=== PATIENT | male | born 1950 | race Caucasian/White ===

== ENCOUNTER 2018-05-26 23:42 | Emergency (ER) | payer MEDICARE, OTHER ==
[~2018-05-26 23:42] MED LIST: CLARITIN 1010 MG/TAB PO; COZAAR 50MG50 MG/TAB PO; CRESTOR20 MG PO; DESYREL 50MG50 MG PO; GLUCOPHAGE500 MG/TAB PO; INDERAL80 MG PO; MAG-OX 400400 MG/TAB PO; MOBIC15 MG PO; MULTI VITAMINS1 TAB PO; NAFTIN1% TP; NASONEX SPRAY17 GM NS; OMEGA-3 FISH1000 MG PO; PROBIOTIC ACID1 EAC3 PO; PROTONIX20 MG PO; ZESTRIL 5MG5 MG PO
[2018-05-27 00:33] LABS: BASO # 0.1 (0.0-0.2); EOS # 0.4 (0.0-0.7); EOS % 4.4 % (0-4.0); GRAN % 35.9 % (42.2-75.2); HEMATOCRIT 37.3 % (42.0-52.0); HEMOGLOBIN 13.4 g/dl (13.5-18.0); LYMPH % 47.7 % (20.0-51.0); MEAN CELL VOLUME 92 fl (80.0-100.0); MEAN CORPUSCULAR HEMOGLOBIN 33 pg (27.0-31.0); MEAN CORPUSCULAR HGB CONC 36 g/dl (33.0-37.0); MEAN PLATELET VOLUME 8.9 fl (7.4-10.4); MONO # 0.9 (0.1-0.6); MONO % 10.8 % (1.7-9.3); PLATELET COUNT 254 K/mm3 (130-400); RED BLOOD COUNT 4.04 M/mm3 (4.20-5.60)
[2018-05-27 00:42] LABS: INR 0.9 (0.8-3.0); PROTHROMBIN TIME 10.5 SECONDS (9.7-12.8)
[2018-05-27 00:45] LABS: PARTIAL THROMBOPLASTIN TIME 30.7 SECONDS (26.0-37.0)
[2018-05-27] MEDS ORDERED: NORCO 325 MG-51 TAB PO (01:42)
[2018-05-27] MEDS ORDERED: CEPHALEXIN500 M1 PO (01:42)
[2018-05-27] MEDS ORDERED: CATAPRES 0.1MG0.1 MG PO (02:00)
[2018-05-27 02:15] VITALS: BP 120/86; PULSE 74
== END 2018-05-27 02:15 | disposition home or self-care (01) ==
LOC: COL.ER 23:42
PROVIDERS: Emergency Medicine
DX: R04.0 Epistaxis (principal); I10 Essential (primary) hypertension; E11.9 Type 2 diabetes mellitus without complications; Z79.82 Long term (current) use of aspirin; Z79.84 Long term (current) use of oral hypoglycemic drugs
CPT/HCPCS: J2405

== ENCOUNTER 2018-08-06 14:01 | Emergency (ER) | payer MEDICARE, OTHER ==
[~2018-08-06] VITALS: Ht 175.3 cm; Wt 77.3 kg
[~2018-08-06 14:01] MED LIST changes: +CATAPRES 0.1MG0.1 MG PO; +CEPHALEXIN500 M1 PO; +NORCO 325 MG-51 TAB PO
[2018-08-06 14:36] LABS: BASO # 0.1 (0.0-0.2); BASO % 0.6 % (0.0-2.0); EOS # 0.3 (0.0-0.7); EOS % 2.7 % (0-4.0); GRAN # 6.7 (1.4-6.5); GRAN % 61.1 % (42.2-75.2); HEMATOCRIT 44.8 % (42.0-52.0); HEMOGLOBIN 15.4 g/dl (13.5-18.0); LYMPH # 3.3 (1.2-3.4); LYMPH % 30.7 % (20.0-51.0); MEAN CELL VOLUME 95 fl (80.0-100.0); MEAN CORPUSCULAR HEMOGLOBIN 33 pg (27.0-31.0); MEAN CORPUSCULAR HGB CONC 34 g/dl (33.0-37.0); MEAN PLATELET VOLUME 9.5 fl (7.4-10.4); MONO # 0.5 (0.1-0.6); MONO % 4.6 % (1.7-9.3); PLATELET COUNT 225 K/mm3 (130-400); REDCELL DISTRIBUTION WIDTH-CV 11.8 % (11.5-14.5)
[2018-08-06] MEDS ORDERED: GLUCOPHAGE500 MG/TAB PO (14:37)
[2018-08-06] MEDS ORDERED: PRINIVIL10 MG PO (14:38)
[2018-08-06] MEDS ORDERED: PROTONIX 40MG T40 MG PO (14:38)
[2018-08-06] MEDS ORDERED: INDERAL LA 80MG80 MG PO (14:39)
[2018-08-06] MEDS ORDERED: MAG-OX 400400 MG/TAB PO (14:40)
[2018-08-06] MEDS ORDERED: FISH OIL 1000MG1 CAP PO (14:40)
[2018-08-06] MEDS ORDERED: PROBIOTIC FORMU1 CAP PO (14:41)
[2018-08-06] MEDS ORDERED: MULTIPLE VITAMI1 CAP PO (14:41)
[2018-08-06] MEDS ORDERED: CLARITIN 1010 MG/TAB PO (14:42)
[2018-08-06] MEDS ORDERED: ASPIRIN E.C. 8181 MG PO (14:42)
[2018-08-06] MEDS ORDERED: FLONASEALLERGY NS (14:43)
[2018-08-06] MEDS ORDERED: CRESTOR20 MG PO (14:43)
[2018-08-06] MEDS ORDERED: DESYREL 50MG50 MG PO (14:44)
[2018-08-06] MEDS ORDERED: ULTRAM 50MG TAB50 MG PO (14:44)
[2018-08-06 14:49] LABS: ALANINE AMINOTRANSFERASE 70 U/L (21-72); ALBUMIN 4.4 gm/dL (3.5-5.0); ALKALINE PHOSPHATASE 43 U/L (50-136); ANION GAP 13 mmol/L (7-16); AST,SGOT 68 U/L (15-37); BILIRUBIN,TOTAL 0.7 mg/dL (0.0-1.0); BLOOD UREA NITROGEN 14 mg/dL (9-20); CALCIUM 9.3 mg/dL (8.4-10.2); CARBON DIOXIDE 22 mmol/L (22-30); CHLORIDE 107 mmol/L (98-107); CREATININE, serum 1.03 mg/dL (0.66-1.25); GLUCOSE 59 mg/dL (74-106); POTASSIUM 5.7 mmol/L (3.4-5.0); SODIUM 142 mmol/L (137-145); TOTAL PROTEIN 7.7 gm/dL (6.4-8.2)
[2018-08-06 14:51] LABS: C-REACTIVE PROTEIN < 0.5 mg/dL (0.0-0.9)
[2018-08-06 14:57] LABS: TROPONIN-I < 0.012 ng/mL (0.000-0.034)
[2018-08-06 15:03] LABS: COLLECTION METHOD CLEAN CATCH
[2018-08-06 15:11] LABS: MUCOUS Present /lpf; PH 5 (5-8); SQUAMOUS EPITHELIAL 0-2 /hpf; URINE APPEARANCE Hazy; URINE BACTERIA None Seen /hpf; URINE BILIRUBIN Negative (NEGATIVE); URINE BLOOD Negative (NEGATIVE); URINE COLOR Yellow; URINE GLUCOSE Negative (NEGATIVE); URINE KETONE Trace (NEGATIVE); URINE LEUKOCYTE ESTERASE Negative (NEGATIVE); URINE NITRATE Negative (NEGATIVE); URINE PROTEIN(semi-quant) 2+ (NEGATIVE); URINE RBC 0-2 /hpf; URINE UROBILINOGEN Negative (NEGATIVE)
[2018-08-06 15:16] LABS: THYROID STIMULATING HORMONE 0.572 uIU/mL (0.465-4.680)
[2018-08-06 17:35] VITALS: TEMP 96.8
[2018-08-06 18:30] VITALS: BP 152/79; PULSE 76
== END 2018-08-06 18:30 | disposition short-term general hospital (02) ==
LOC: COL.ER 14:01
PROVIDERS: Family Medicine
DX: A41.9 Sepsis, unspecified organism (principal); E16.2 Hypoglycemia, unspecified; E87.5 Hyperkalemia; T68.XXXA Hypothermia, initial encounter; Z79.82 Long term (current) use of aspirin; Z79.84 Long term (current) use of oral hypoglycemic drugs
CPT/HCPCS: J0696; J1815; J7030; Q9967

== ENCOUNTER 2019-04-22 09:31 | Emergency (ER) | payer MEDICARE, OTHER ==
[~2019-04-22] VITALS: Ht 175.3 cm; Wt 77.3 kg
[~2019-04-22 09:31] MED LIST changes: +ASPIRIN E.C. 8181 MG PO; +FISH OIL 1000MG1 CAP PO; +FLONASEALLERGY NS; +INDERAL LA 80MG80 MG PO; +MULTIPLE VITAMI1 CAP PO; +PRINIVIL10 MG PO; +PROBIOTIC FORMU1 CAP PO; +PROTONIX 40MG T40 MG PO; +ULTRAM 50MG TAB50 MG PO
[2019-04-22 10:14] LABS: BASO % 0.5 % (0.0-2.0); EOS # 0.1 (0.0-0.7); EOS % 2.1 % (0-4.0); HEMATOCRIT 42.5 % (42.0-52.0); HEMOGLOBIN 14.4 g/dl (13.5-18.0); LYMPH # 1.6 (1.2-3.4); LYMPH % 26.2 % (20.0-51.0); MEAN CELL VOLUME 95 fl (80.0-100.0); MEAN CORPUSCULAR HEMOGLOBIN 32 pg (27.0-31.0); MEAN CORPUSCULAR HGB CONC 34 g/dl (33.0-37.0); MONO # 0.4 (0.1-0.6); MONO % 5.9 % (1.7-9.3); PLATELET COUNT 155 K/mm3 (130-400); RED BLOOD COUNT 4.49 M/mm3 (4.20-5.60); REDCELL DISTRIBUTION WIDTH-CV 13.1 % (11.5-14.5)
[2019-04-22 10:24] LABS: ALANINE AMINOTRANSFERASE 34 U/L (21-72); ALBUMIN 4.5 gm/dL (3.5-5.0); ALKALINE PHOSPHATASE 50 U/L (50-136); ANION GAP 16 mmol/L (7-16); AST,SGOT 51 U/L (15-37); BILIRUBIN,TOTAL 0.9 mg/dL (0.0-1.0); BLOOD UREA NITROGEN 20 mg/dL (9-20); CALCIUM 9.8 mg/dL (8.4-10.2); CARBON DIOXIDE 22 mmol/L (22-30); CHLORIDE 102 mmol/L (98-107); GLUCOSE 126 mg/dL (74-106); POTASSIUM 5.6 mmol/L (3.4-5.0); SODIUM 140 mmol/L (137-145); TOTAL PROTEIN 8.1 gm/dL (6.4-8.2)
[2019-04-22 10:36] LABS: TROPONIN-I < 0.012 ng/mL (0.000-0.035)
[2019-04-22 11:27] LABS: COLLECTION METHOD CLEAN CATCH
[2019-04-22 11:38] LABS: PH 5 (5-8); SQUAMOUS EPITHELIAL 0-2 /hpf; URINE APPEARANCE Clear; URINE BACTERIA None Seen /hpf; URINE BILIRUBIN Negative (NEGATIVE); URINE BLOOD Negative (NEGATIVE); URINE COLOR Yellow; URINE GLUCOSE 1+ (NEGATIVE); URINE KETONE 1+ (NEGATIVE); URINE LEUKOCYTE ESTERASE Negative (NEGATIVE); URINE NITRATE Negative (NEGATIVE); URINE PROTEIN(semi-quant) 1+ (NEGATIVE); URINE RBC 0-2 /hpf; URINE UROBILINOGEN Negative (NEGATIVE)
[2019-04-22 13:35] VITALS: BP 140/72; PULSE 68; TEMP 97.4
== END 2019-04-22 13:35 | disposition home or self-care (01) ==
LOC: COL.ER 09:31
PROVIDERS: Emergency Medicine
DX: E11.649 Type 2 diabetes mellitus with hypoglycemia without coma (principal); F10.10 Alcohol abuse, uncomplicated; Z79.84 Long term (current) use of oral hypoglycemic drugs; Z79.82 Long term (current) use of aspirin
CPT/HCPCS: J3411; J3475; J7030

== ENCOUNTER 2019-09-08 14:49 | Observation (INO) | payer MEDICARE, OTHER ==
[~2019-09-08] VITALS: Ht 177.8 cm; Wt 77.7 kg
[2019-09-08 15:15] LABS: BASO # 0.1 (0.0-0.2); BASO % 0.8 % (0.0-2.0); EOS # 0.3 (0.0-0.7); EOS % 3.5 % (0-4.0); GRAN # 4.4 (1.4-6.5); GRAN % 59.4 % (42.2-75.2); HEMATOCRIT 43.2 % (42.0-52.0); HEMOGLOBIN 14.6 g/dl (13.5-18.0); LYMPH # 1.9 (1.2-3.4); LYMPH % 25.4 % (20.0-51.0); MEAN CELL VOLUME 96 fl (80.0-100.0); MEAN CORPUSCULAR HEMOGLOBIN 33 pg (27.0-31.0); MEAN CORPUSCULAR HGB CONC 34 g/dl (33.0-37.0); MEAN PLATELET VOLUME 9.7 fl (7.4-10.4); MONO # 0.8 (0.1-0.6); MONO % 10.6 % (1.7-9.3); PLATELET COUNT 204 K/mm3 (130-400); RED BLOOD COUNT 4.49 M/mm3 (4.20-5.60); REDCELL DISTRIBUTION WIDTH-CV 12.3 % (11.5-14.5)
[2019-09-08 15:24] LABS: ALANINE AMINOTRANSFERASE 92 U/L (21-72); ALBUMIN 4.7 gm/dL (3.5-5.0); ALKALINE PHOSPHATASE 57 U/L (50-136); ANION GAP 11 mmol/L (7-16); AST,SGOT 137 U/L (15-37); BILIRUBIN,TOTAL 0.9 mg/dL (0.0-1.0); BLOOD UREA NITROGEN 20 mg/dL (9-20); CALCIUM 9.4 mg/dL (8.4-10.2); CARBON DIOXIDE 26 mmol/L (22-30); CHLORIDE 103 mmol/L (98-107); CREATININE, serum 1.29 (0.66-1.25); GLUCOSE 173 mg/dL (74-106); POTASSIUM 5.3 mmol/L (3.4-5.0); SODIUM 139 mmol/L (137-145); TOTAL PROTEIN 8.3 gm/dL (6.4-8.2)
[2019-09-08] MEDS ORDERED: BENADRYL50 MG PO (15:30)
[2019-09-08] MEDS ORDERED: MELATONIN5 M1 SL (15:31)
[2019-09-08 15:38] LABS: TROPONIN-I < 0.012 ng/mL (0.000-0.035)
--- NOTE | 2019-09-08 17:15 | NUR ---
Patient arrives to ICU 8 via ED cart and is attached to monitor. Vitals and assessment as charted. Noted swelling to right side of tongue, but airway patent and tracheal auscultation benign. Care assumed at this time.
[2019-09-08 17:36] VITALS: BP 157/80; PULSE 67; TEMP 98.2
[2019-09-08] MEDS ORDERED: ZANAFLEX 4MG TAB4 MG PO (17:53)
[2019-09-08 20:00] VITALS: BP 133/81; PULSE 56; TEMP 98.4
--- NOTE | 2019-09-08 20:00 | NUR ---
Patient assessed, vitals stable. Patient was curious as to what his blood sugar was since we have not had orders to routinely check it here, I stated that I can get a glucometer and check it for him if he would like. Patient asked for snack since he had not had much to eat today and the last time he had something with sugar in it was this AM, snack provided to patient now. Patient brushed teeth in bed, glass of water at bedside along with call light. Will continue to monitor.
[2019-09-09] VITALS: BP 106/66; PULSE 74; TEMP 97.9
[2019-09-09 04:00] VITALS: BP 129/70; PULSE 59; TEMP 97.8
[2019-09-09 06:09] LABS: BASO % 0.3 % (0.0-2.0); GRAN # 2.5 (1.4-6.5); GRAN % 74.4 % (42.2-75.2); HEMATOCRIT 40.5 % (42.0-52.0); LYMPH # 0.7 (1.2-3.4); MEAN CELL VOLUME 94 fl (80.0-100.0); MEAN CORPUSCULAR HEMOGLOBIN 32 pg (27.0-31.0); MEAN CORPUSCULAR HGB CONC 35 g/dl (33.0-37.0); MEAN PLATELET VOLUME 9.6 fl (7.4-10.4); MONO # 0.2 (0.1-0.6); MONO % 4.7 % (1.7-9.3); PLATELET COUNT 122 K/mm3 (130-400); RED BLOOD COUNT 4.32 M/mm3 (4.20-5.60)
[2019-09-09 06:22] LABS: ALANINE AMINOTRANSFERASE 74 U/L (21-72); ALBUMIN 4.4 gm/dL (3.5-5.0); ALKALINE PHOSPHATASE 47 U/L (50-136); ANION GAP 11 mmol/L (7-16); AST,SGOT 97 U/L (15-37); BILIRUBIN,TOTAL 0.7 mg/dL (0.0-1.0); BLOOD UREA NITROGEN 20 mg/dL (9-20); CARBON DIOXIDE 22 mmol/L (22-30); CHLORIDE 106 mmol/L (98-107); CREATININE, serum 1.15 (0.66-1.25); GLUCOSE 190 mg/dL (74-106); SODIUM 139 mmol/L (137-145); TOTAL PROTEIN 7.9 gm/dL (6.4-8.2)
[2019-09-09 06:37] LABS: TROPONIN-I < 0.012 ng/mL (0.000-0.035)
[2019-09-09 09:00] VITALS: BP 136/82; PULSE 57; TEMP 97.8
--- NOTE | 2019-09-09 09:02 | NUR ---
Dr. Sepulveda rounds on patient at this time. Orders as entered CPOE.
--- NOTE | 2019-09-09 09:07 | NUR ---
ECHO completed by tech at this time.
--- NOTE | 2019-09-09 10:39 | NUR ---
Dr. Delaney rounds on patient at this time. Orders entered CPOE.
[2019-09-09] MEDS ORDERED: LIPITOR 40MG TA40 MG PO (11:21)
[2019-09-09] MEDS ORDERED: PREDNISONE20 MG PO (11:22)
[2019-09-09] MEDS ORDERED: PEPCID 20MG TAB20 MG PO (11:23)
--- NOTE | 2019-09-09 11:30 | NUR ---
Discharge education provided to patient and with understanding verbalized. INT IV discontinued at this time.
--- NOTE | 2019-09-09 11:36 | NUR ---
Patient discharged to POC via ambulatory at this time. Care completed.
== END 2019-09-09 11:36 | disposition home or self-care (01) ==
LOC: COL.ER 14:49 → ICU 16:05
PROVIDERS: Emergency Medicine; ADMIT Student in an Organized Health Care Education/Training Program
DX: T78.3XXA Angioneurotic edema, initial encounter (principal); I25.2 Old myocardial infarction; I10 Essential (primary) hypertension; E78.5 Hyperlipidemia, unspecified; E11.9 Type 2 diabetes mellitus without complications; I34.0 Nonrheumatic mitral (valve) insufficiency; Z86.73 Personal history of transient ischemic attack (TIA), and cerebral infarction without residual deficits; K21.9 Gastro-esophageal reflux disease without esophagitis; Z79.82 Long term (current) use of aspirin; Z79.51 Long term (current) use of inhaled steroids; Z98.52 Vasectomy status; Z88.8 Allergy status to other drugs, medicaments and biological substances
CPT/HCPCS: G0378; J1200; J1650; J2920; J2930

== ENCOUNTER 2019-12-27 21:24 | Emergency (ER) | payer MEDICARE, OTHER ==
[~2019-12-27] VITALS: Ht 175.3 cm; Wt 77.3 kg
[~2019-12-27 21:24] MED LIST changes: +BENADRYL50 MG PO; +LIPITOR 40MG TA40 MG PO; +MELATONIN5 M1 SL; +PEPCID 20MG TAB20 MG PO; +PREDNISONE20 MG PO; +ZANAFLEX 4MG TAB4 MG PO
[2019-12-27 21:29] VITALS: TEMP 97.8
[2019-12-27] MEDS ORDERED: RIOMET500 MG/5 M PO (22:43)
[2019-12-27] MEDS ORDERED: NORVASC2.5 MG PO (22:44)
[2019-12-27 22:53] LABS: BASO # 0.1 (0.0-0.2); BASO % 0.8 % (0.0-2.0); EOS # 0.3 (0.0-0.7); EOS % 3.5 % (0-4.0); GRAN # 4.3 (1.4-6.5); GRAN % 61.1 % (42.2-75.2); HEMATOCRIT 42.1 % (42.0-52.0); HEMOGLOBIN 14.2 g/dl (13.5-18.0); LYMPH # 1.8 (1.2-3.4); LYMPH % 25.4 % (20.0-51.0); MEAN CELL VOLUME 96 fl (80.0-100.0); MEAN CORPUSCULAR HEMOGLOBIN 32 pg (27.0-31.0); MEAN CORPUSCULAR HGB CONC 34 g/dl (33.0-37.0); MEAN PLATELET VOLUME 11.2 fl (7.4-10.4); MONO # 0.6 (0.1-0.6); MONO % 8.9 % (1.7-9.3); PLATELET COUNT 170 K/mm3 (130-400); REDCELL DISTRIBUTION WIDTH-CV 11.9 % (11.5-14.5)
[2019-12-27 22:55] LABS: ALBUMIN 4.8 gm/dL (3.5-5.0); BILIRUBIN,TOTAL 0.6 mg/dL (0.0-1.0); CALCIUM 9.3 mg/dL (8.4-10.2); CREATININE, serum 0.95 (0.66-1.25); POTASSIUM 4.6 mmol/L (3.4-5.0); TOTAL PROTEIN 8.1 gm/dL (6.4-8.2)
[2019-12-27 23:02] LABS: PROTHROMBIN TIME 11.1 SECONDS (9.7-12.8)
[2019-12-27 23:05] VITALS: BP 130/89; PULSE 71
== END 2019-12-27 23:05 | disposition home or self-care (01) ==
LOC: COL.ER 21:24
PROVIDERS: Family Medicine
DX: R04.0 Epistaxis (principal); I10 Essential (primary) hypertension; Z79.82 Long term (current) use of aspirin; Z79.51 Long term (current) use of inhaled steroids

== ENCOUNTER → 2020-08-14 | Outpatient (CLI) | payer MEDICARE, OTHER ==
[~2020-08-14] MED LIST changes: +NORVASC2.5 MG PO; +RIOMET500 MG/5 M PO
== END ==
LOC: COL.RAD 12:40
DX: M47.817 Spondylosis without myelopathy or radiculopathy, lumbosacral region (principal); M47.816 Spondylosis without myelopathy or radiculopathy, lumbar region; M51.36 Other intervertebral disc degeneration, lumbar region

== ENCOUNTER 2020-10-27 10:19 | Day surgery (SDC) | payer MEDICARE, OTHER ==
[~2020-10-27] VITALS: Ht 175.3 cm; Wt 77.7 kg
[2020-10-27 10:57] VITALS: BP 157/79; PULSE 63; TEMP 98.2
[2020-10-27] MEDS ORDERED: NORVASC 5MG5 MG/TAB PO (11:04)
[2020-10-27] MEDS ORDERED: GLUCOPHAGE500 MG/TAB PO (11:05)
[2020-10-27] MEDS ORDERED: PROBIOTIC BLEN1 EACH PO (11:06)
[2020-10-27] MEDS ORDERED: ONE-A-DAY ESSE1 EACH PO (11:07)
[2020-10-27] MEDS ORDERED: LIPITOR 40MG TA40 MG PO (11:08)
[2020-10-27] MEDS ORDERED: NAFTIN1% TP (11:11)
[2020-10-27] MEDS ORDERED: ZANAFLEX CAPSULE4 MG PO (11:12)
[2020-10-27] MEDS ORDERED: MELATIN 3 MG-11 TAB PO (11:13)
--- NOTE | 2020-10-27 11:17 | NUR ---
TO RM AT 1027- CALL LIGHT IN REACH
[2020-10-27] MEDS ORDERED: NORCO 325 MG-51 TAB PO (14:33)
[2020-10-27 15:10] VITALS: BP 135/70; PULSE 50; TEMP 99.1
--- NOTE | 2020-10-27 15:10 | NUR ---
TO RM 8 PER OWN WILL STEADY GAIT. ALERT ORIENTED X 3, TALKING TO STAFF. C/0 PAIN 2-10. DENIES NAUSEA. INCISIONS CLEAN DRY INTACT.
[2020-10-27 15:25] VITALS: BP 139/78; PULSE 54
--- NOTE | 2020-10-27 15:25 | NUR ---
RECEIVED WATER AND TAKING SIPS.
[2020-10-27 15:40] VITALS: BP 135/77; PULSE 56
--- NOTE | 2020-10-27 15:40 | NUR ---
SAT UP A LITTLE HIGHER. RECEIVED URSZULAO.
[2020-10-27 16:00] VITALS: BP 131/84; PULSE 58
--- NOTE | 2020-10-27 16:05 | NUR ---
ATE 100% JELLO AND TOLERATED WELL. RECEIVED NORCO 1 TAB PER REQUEST WITH PAIN 4/10. RECEIVED CRACKERS.
[2020-10-27 16:20] VITALS: BP 125/70; PULSE 65
--- NOTE | 2020-10-27 16:20 | NUR ---
ATE 100% AND TOLERATED WELL. AMBULATED TO BATHROOM WITH STAND BY ASSIST. VOIDED AND AMBULATED BACK TO . PATIENT STATED HE WAS READY TO GO HOME.
--- NOTE | 2020-10-27 16:45 | NUR ---
RECEIVED DISCHARGE INSTRUCTIONS AND VERBALIZED UNDERSTANDING. DISCONTINUED IV AND INT- CATHETER INTACT.
--- NOTE | 2020-10-27 17:00 | NUR ---
DISCHARGED PER WC BY NURSING STAFF TO PRIVATE CAR IN CARE OF [facility].
== END 2020-10-27 17:15 | disposition home or self-care (01) ==
LOC: SDCO 10:19
DX: K40.21 Bilateral inguinal hernia, without obstruction or gangrene, recurrent (principal); I10 Essential (primary) hypertension; E11.9 Type 2 diabetes mellitus without complications; J45.909 Unspecified asthma, uncomplicated; K21.9 Gastro-esophageal reflux disease without esophagitis; I49.3 Ventricular premature depolarization; E78.00 Pure hypercholesterolemia, unspecified; Z20.822 Contact with and (suspected) exposure to COVID-19; G89.29 Other chronic pain; Z79.899 Other long term (current) drug therapy; Z79.82 Long term (current) use of aspirin; Z79.84 Long term (current) use of oral hypoglycemic drugs; Z88.8 Allergy status to other drugs, medicaments and biological substances
CPT/HCPCS: C1781; J0330; J0690; J1885; J2405; J2704; J3010; J7030

== ENCOUNTER 2024-01-06 20:47 | Emergency (ER) | payer MEDICARE, OTHER ==
[~2024-01-06] VITALS: Ht 175.3 cm; Wt 70.5 kg
[~2024-01-06 20:47] MED LIST changes: +ASTELIN NASAL S34 ML NS; +FERRO-TIME325 MG PO; +GLUCOPHAGE1000 MG PO; +LINSEED OIL 1 ML1 ML; +MELATIN 3 MG-11 TAB PO; +NAFTIN TP; +NORVASC 5MG5 MG/TAB PO; +ONE-A-DAY ESSE1 EACH PO; +PROAIR HFA0.09 MG/AC IH; +PROBIOTIC BLEN1 EACH PO; +UROXATRAL10 M1 PO; +ZANAFLEX CAPSULE4 MG PO; +ZYRTEC 10MG10 MG PO; +[UNRECOGNIZED DRUG - OTHER] PO
[2024-01-06 20:55] VITALS: TEMP 98.4
[2024-01-06] MEDS ORDERED: NS 1,000 ML IV ONE (21:15)
[2024-01-06 21:19] LABS: COLLECTION METHOD CLEAN CATCH
[2024-01-06 21:26] LABS: PROTHROMBIN TIME 11.2 SECONDS (9.7-12.8)
[2024-01-06 21:27] LABS: BASO % 0.5 % (0.0-2.0); EOS # 0.1 K/mm3 (0.0-0.7); EOS % 1.3 % (0.0-4.0); GRAN # 5.8 K/mm3 (1.4-6.5); GRAN % 71.3 % (42.2-75.2); HEMOGLOBIN 12.7 g/dl (13.5-18.0); LYMPH # 1.4 K/mm3 (1.2-3.4); MEAN CELL VOLUME 94 fl (80.0-100.0); MEAN CORPUSCULAR HEMOGLOBIN 33 pg (27-31); MEAN CORPUSCULAR HGB CONC 35 g/dl (33.0-37.0); MEAN PLATELET VOLUME 9.1 fl (7.4-10.4); MONO # 0.8 K/mm3 (0.1-0.6); MONO % 9.4 % (1.7-9.3); PLATELET COUNT 301 K/mm3 (130-400); RED BLOOD COUNT 3.85 M/mm3 (4.20-5.60); REDCELL DISTRIBUTION WIDTH-CV 11.4 % (11.5-14.5)
[2024-01-06 21:36] LABS: PH 5.5 (5.0-8.5); URINE APPEARANCE TURBID (CLEAR/HAZY); URINE BLOOD 3+ (NEGATIVE); URINE COLOR RED (YELLOW); URINE GLUCOSE NEGATIVE (NEGATIVE); URINE KETONE NEGATIVE (NEGATIVE); URINE NITRATE NEGATIVE (NEGATIVE); URINE PROTEIN(semi-quant) 3+ (NEGATIVE); URINE UROBILINOGEN 0.2 E.U/dL (0.2-1.0)
[2024-01-06] MEDS ORDERED: NS 50 ML IV SCH (21:38)
[2024-01-06] MEDS ORDERED: Iohexol 350 - 100 ML VIAL IV ONE (21:38)
[2024-01-06 21:44] LABS: ALBUMIN 3.4 gm/dL (3.4-4.8); BILIRUBIN,TOTAL 0.5 mg/dL (0.2-1.2); CREATININE, serum 1.01 mg/dL (0.72-1.25); POTASSIUM 4.4 mmol/L (3.5-4.5); TOTAL PROTEIN 7.2 gm/dL (6.2-8.1)
[2024-01-06 21:47] LABS: SQUAMOUS EPITHELIAL 0-2 /hpf (0-10); URINE RBC >50 /hpf (0-2); URINE WBC >50 /hpf (0-2)
[2024-01-06 21:48] LABS: URINE BACTERIA RARE /hpf (NONE SEEN)
[2024-01-06] MEDS ORDERED: CEPHALEXIN500 M1 PO (22:26)
[2024-01-06] MEDS ORDERED: cefTRIAXone 1 G in Water For Injection,Sterile 10 ML IV ONE (22:30)
[2024-01-06 22:42] VITALS: BP 120/76; PULSE 67
[2024-01-10] MEDS ORDERED: OMNICEF 300MG300 MG PO (01:20)
== END 2024-01-06 22:51 | disposition home or self-care (01) ==
LOC: COL.ER 20:47
PROVIDERS: Personal Emergency Response Attendant
DX: R47.1 Dysarthria and anarthria (principal); E87.1 Hypo-osmolality and hyponatremia; N39.0 Urinary tract infection, site not specified; Z86.73 Personal history of transient ischemic attack (TIA), and cerebral infarction without residual deficits
CPT/HCPCS: J0696; J7030; Q9967